=== PATIENT | female | born 1990 | race Caucasian/White ===

== ENCOUNTER 2018-11-28 22:46 | Emergency (ER) | payer MEDICAID ==
[~2018-11-28] VITALS: Ht 160 cm; Wt 63.4 kg
[2018-11-29 03:05] VITALS: BP 140/92
== END 2018-11-29 03:05 | disposition home or self-care (01) ==
LOC: ED 22:46
DX: S00.03XA Contusion of scalp, initial encounter (principal); W18.2XXA Fall in (into) shower or empty bathtub, initial encounter; Y93.E1 Activity, personal bathing and showering; Y92.002 Bathroom of unspecified non-institutional (private) residence as the place of occurrence of the external cause

== ENCOUNTER 2018-12-20 15:56 | Emergency (ER) | payer MEDICAID ==
[~2018-12-20] VITALS: Ht 160 cm; Wt 68.0 kg
[2018-12-20 16:16] VITALS: BP 133/80
== END 2018-12-20 16:36 | disposition left against medical advice (07) ==
LOC: ED 15:56
DX: R41.3 Other amnesia (principal); F17.210 Nicotine dependence, cigarettes, uncomplicated; Z91.19 Patient's noncompliance with other medical treatment and regimen

== ENCOUNTER 2019-10-13 | Emergency (ER) | payer SELFPAY ==
--- NOTE | 2019-10-13 19:35 | NUR ---
BREATHING TREATMENT GIVEN.
[2019-10-13] MEDS ORDERED: PREDNISONE10 MG PO ×2 (20:14→20:15)
[2019-10-13] MEDS ORDERED: ZITHROMAX500 MG PO ×2 (20:14→20:15)
[2019-10-13] MEDS ORDERED: VENTOLIN HFA IN ×2 (20:14→20:15)
== END 2019-10-13 20:25 | disposition home or self-care (01) | DRG 153 ==
DX: J06.9 Acute upper respiratory infection, unspecified (principal); F17.210 Nicotine dependence, cigarettes, uncomplicated

== ENCOUNTER 2019-11-15 | Emergency (ER) | payer OTHER ==
[~2019-11-15] MED LIST: PREDNISONE10 MG PO; VENTOLIN HFA IN; ZITHROMAX500 MG PO
[2019-11-15 22:01] LABS: HEMATOCRIT 32.8 % (37.0-47.0); HEMOGLOBIN 10.8 g/dl (12.0-16.0); IMMATURE GRANULOCYTES 0.3 % (0.0-5.0); MEAN CELL VOLUME 89.6 fL CALC (80.0-100.0); MEAN CORPUSCULAR HGB 29.5 pG CALC (26.0-32.0); MEAN CORPUSCULAR HGB CONC 32.9 g/L CALC (32.0-36.0); NEUT# 8.02 thou/uL (2.00-7.15); RED BLOOD COUNT 3.66 mill/uL (4.20-5.60); RED CELL DISTRI WIDTH 13.8 % (11.5-15.5)
[2019-11-15 22:11] LABS: ALBUMIN 4.3 g/dL (3.2-5.0); ALKALINE PHOSPHATASE 117 u/l (38-126); ANION GAP 12 (6-22 (CALC)); BILIRUBIN, TOTAL 0.7 mg/dL (0.0-1.4); BUN 20 mg/dL (7-17); BUN/CREATININE RATIO 31 (12-20 (CALC)); CARBON DIOXIDE 27 mmol/l (22-30); CHLORIDE 101 mmol/l (95-108); CREATININE 0.6 mg/dL (0.5-1.0); GFR > 60 ML/MIN (>=60 (CALC)); GFR FOR AFR.AMER. > 60 ML/MIN (>=60 (CALC)); POTASSIUM 4.4 mmol/l (3.5-5.1); SGOT/AST 34 u/l (14-36); SODIUM 136 mmol/l (137-146); TOTAL PROTEIN 8.2 g/dL (6.3-8.2)
[2019-11-15 23:05] LABS: URINE BILIRUBIN - DIPSTICK NEGATIVE (NEGATIVE); URINE BLOOD DIPSTICK NEGATIVE (NEGATIVE); URINE COLOR YELLOW; URINE GLUCOSE - DIPSTICK NEGATIVE (NEGATIVE); URINE KETONE NEGATIVE (NEGATIVE); URINE LEUK ESTERASE NEGATIVE (NEGATIVE); URINE NITRITE - DIPSTICK NEGATIVE (Negative); URINE PROTEIN - DIPSTICK NEGATIVE (NEG-TRACE); URINE UROBILINOGEN - DIPSTICK 0.2 E.U./dL (0.2)
[2019-11-15 23:10] LABS: BARBITURATES NEGATIVE (NEGATIVE); COCAINE NEGATIVE (NEGATIVE); METHADONE NEGATIVE (NEGATIVE); TETRAHYDROCANNABIONOL NEGATIVE (NEGATIVE); TRICYLIC ANTIDEPRESSANTS NEGATIVE (NEGATIVE)
[2019-11-15 23:11] LABS: OXCYCODONE POSITIVE (NEGATIVE)
[2019-11-15] MEDS ORDERED: NAPROXEN500 MG PO ×2 (23:13)
== END 2019-11-15 23:30 | DRG 536 ==
PROVIDERS: Emergency Medicine
DX: S32.9XXA Fracture of unspecified parts of lumbosacral spine and pelvis, initial encounter for closed fracture (principal); S51.011A Laceration without foreign body of right elbow, initial encounter; S01.01XA Laceration without foreign body of scalp, initial encounter; F17.200 Nicotine dependence, unspecified, uncomplicated; V89.2XXA Person injured in unspecified motor-vehicle accident, traffic, initial encounter

== ENCOUNTER 2020-04-12 01:49 | Inpatient (IN) | payer SELFPAY ==
[~2020-04-12] VITALS: Ht 160 cm; Wt 66.5 kg
[2020-04-12] VITALS (15 sets, daily range): BP systolic 98–164; BP diastolic 60–100
[~2020-04-12 01:49] MED LIST changes: +NAPROXEN500 MG PO
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
[2020-04-12 02:14] LABS: IMMATURE GRANULOCYTES 0.2 % (0.0-5.0); MEAN CELL VOLUME 88.6 fL CALC (80.0-100.0); MEAN CORPUSCULAR HGB 28.6 pG CALC (26.0-32.0); MEAN CORPUSCULAR HGB CONC 32.2 g/dL CAL (32.0-36.0); NEUT# 5.32 thou/uL (2.00-7.15); RED BLOOD COUNT 4.48 mill/uL (4.20-5.60); RED CELL DISTRI WIDTH 14.1 % (11.5-15.5)
[2020-04-12 02:17] LABS: URINE BILIRUBIN - DIPSTICK NEGATIVE (NEGATIVE); URINE BLOOD DIPSTICK NEGATIVE (NEGATIVE); URINE COLOR YELLOW; URINE GLUCOSE - DIPSTICK NEGATIVE (NEGATIVE); URINE KETONE NEGATIVE (NEGATIVE); URINE LEUK ESTERASE NEGATIVE (NEGATIVE); URINE NITRITE - DIPSTICK NEGATIVE (Negative); URINE PROTEIN - DIPSTICK NEGATIVE (NEG-TRACE); URINE SPECIFIC GRAVITY 1.015; URINE UROBILINOGEN - DIPSTICK 0.2 E.U./dL (0.2)
[2020-04-12 02:17] LABS: HEMATOCRIT 39.7 % (37.0-47.0); HEMOGLOBIN 12.8 g/dl (12.0-16.0)
[2020-04-12 02:26] LABS: ALBUMIN 4.7 g/dL (3.2-5.0); ALKALINE PHOSPHATASE 100 u/l (38-126); ANION GAP 16 (6-22 (CALC)); BUN 12 mg/dL (7-17); BUN/CREATININE RATIO 17 (12-20 (CALC)); CARBON DIOXIDE 22 mmol/l (22-30); CHLORIDE 103 mmol/l (95-108); CREATININE 0.7 mg/dL (0.5-1.0); ETHYL ALCOHOL 0 mg/dl (0-30); GFR > 60 ML/MIN (>=60 (CALC)); GFR FOR AFR.AMER. > 60 ML/MIN (>=60 (CALC)); MAGNESIUM 2.1 mg/dL (1.6-2.3); POTASSIUM 3.7 mmol/l (3.5-5.1); SODIUM 137 mmol/l (137-146)
[2020-04-12 02:31] LABS: HCG SERUM/URINE (NEG/POS) NEGATIVE (NEGATIVE)
[2020-04-12 02:32] LABS: BILIRUBIN, TOTAL 1.2 mg/dL (0.0-1.4); SGOT/AST 187 u/l (14-36)
--- NOTE | 2020-04-12 02:33 | NUR ---
CALLED DAVID AT POISON CONTROL. ADVISED A HEP PROFILE/REPEAT LFT AND EKG IN 4 HOURS. INCREASE K+ LEVEL TO 4.0...SUGGESTS 20-40 MEQ OF KCL EITHER IV OR PO. GIVE SOME NS AND SOME ATIVAN FOR AGITATION AND TO CONTROL THE HR.
--- NOTE | 2020-04-12 03:40 | NUR ---
PT REPORT TO NURSE MAGUIRE IN ICU
--- NOTE | 2020-04-12 03:45 | NUR ---
PT TRANSPORTED TO ICU VIA STRETCHER HEART MONITOR O2 IN STABLE CONDITION
--- NOTE | 2020-04-12 04:00 | NUR ---
PT ARRIVES VIA ER STRETCHER ON TELEPHONE MAINTAINER AND SOFT WRIST RESTRAINT WHICH WAS DISCONTINUED BY ER NURSE. PT WAS TRANSFERRED TO BED X4. PT UNABLE TO FOLLOW COMMANDS, OR ANSWER QUESTIONS, IS GUARDED, UNCOOPERATIVE AT TIMES. NEEDS CONSTANT VERBAL CUEING. ON 2 L/MIN NC. NO SOB NOTED, SATS 100%. BP 140'S SYSTOLIC, SR/ST ON TELEMETRY. [facility] SITE INTACT AND FLUSHES PROPERLY. SITTER AT BEDSIDE.
--- NOTE | 2020-04-12 05:26 | NUR ---
PT RESTLESS IN BED, ASKED IF SHE HAD TO VOID, SHE RESPONDS YES, PLACED ON BEDPAN, WAS INCONTINENT WELL. WASHED RICHARD AREA, NEW GOWN, AND BEDPAD. SITTER AT BEDSIDE.
--- NOTE | 2020-04-12 06:45 | NUR ---
REPORT RECEIVED FROM MYLES. CARE ASSUMED.
--- NOTE | 2020-04-12 07:00 | NUR ---
PT RESTING IN BED AWAKE. PT IS ALERT AND OREINTED TO SELF ONLY. REORIENTATION UNSUCCESSFUL. SHIFT ASSESSMENT COMPLETED AT THIS TIME. IV PATENT X1. SITTER AT BEDSIDE. WILL CONTINUE TO MONITOR.
--- NOTE | 2020-04-12 07:51 | NUR ---
RT AT BEDSIDE FOR EKG
--- NOTE | 2020-04-12 08:03 | NUR ---
LAB AT BEDSIDE.
--- NOTE | 2020-04-12 08:13 | NUR ---
DR MOORE AT BEDSIDE AT THIS TIME
--- NOTE | 2020-04-12 08:20 | NUR ---
MARISOL WITH POISON CONTROL CALLED FOR UPDATES. UPDATES PROVIDED.
[2020-04-12 08:37] LABS: ALBUMIN 4.6 g/dL (3.2-5.0); ALKALINE PHOSPHATASE 111 u/l (38-126); ANION GAP 12 (6-22 (CALC)); BILIRUBIN, TOTAL 1.5 mg/dL (0.0-1.4); BUN 9 mg/dL (7-17); BUN/CREATININE RATIO 15 (12-20 (CALC)); CARBON DIOXIDE 25 mmol/l (22-30); CHLORIDE 105 mmol/l (95-108); CREATININE 0.6 mg/dL (0.5-1.0); GFR > 60 ML/MIN (>=60 (CALC)); GFR FOR AFR.AMER. > 60 ML/MIN (>=60 (CALC)); POTASSIUM 4.2 mmol/l (3.5-5.1); SGOT/AST 209 u/l (14-36); SODIUM 137 mmol/l (137-146); TOTAL PROTEIN 7.8 g/dL (6.3-8.2)
--- NOTE | 2020-04-12 09:49 | NUR ---
PT RESTING IN BED. RT AT BEDSIDE TO COMPLETED EKG. EKG STILL NOT SHOWING QT/QTC MEASUREMENTS. WILL REPEAT EKG WITH EKG MACHINE FROM ER. AND CALL POISON CONTROL WITH RESULTS. PENDING ACETYLCYSTINE TO START ONCE POISON CONTROL IS NOTIFIED OF ALL FINDINGS.
--- NOTE | 2020-04-12 10:08 | NUR ---
SPOKE WITH KEVIN FROM POISON CONTROL UPDATED ON LAB VALUES AND QT/QTC. ACETADOTE STARTED PER RECOMMENDATION AND [facility] PROTOCOL WELL.
--- NOTE | 2020-04-12 11:30 | NUR ---
PT AWAKE AND REQUESTING A NICOTINE PATCH. NICOTINE PATCH ORDERED PER PROTOCOL.
--- NOTE | 2020-04-12 12:30 | NUR ---
PT AWAKE RESP ARE EVEN AND UNLABORED. PT REQUESTIGN SOMEHTING FOR ANXIETY. PT REMAINS GUARDED. SITTER AT BEDSIDE. DR MOORE NOTIFIED. NEW ORDERS RECIEVED.
--- NOTE | 2020-04-12 14:00 | NUR ---
PT AWAKE IN BED. RESP ARE EVEN AND UNLABORED. PT REMAINS GUARDED. SITTER AT BEDISDE. WILL CONTINUE TO MONITOR.
--- NOTE | 2020-04-12 16:00 | NUR ---
PT RESTING IN BED WATCHING TV. RESP ARE EVEN AND UNLABORED. VSS ON MONITOR. PT REMAINS GUARDED. CALL LIGHT IN REACH. WILL CONTINUE TO MONITOR.
--- NOTE | 2020-04-12 17:26 | NUR ---
IV site discontinued, cath intact. No edema , no redness, voices no discomfort. Peripheral IV started. IV access obtained with #20 [employer] at [facility] with 1 IV stick attempts. Flushes easily with good blood return.
--- NOTE | 2020-04-12 17:38 | NUR ---
PHONED FATHER TO BRING CLOTHES FOR PATIENT TO TAKE TO FACILITY UPON DISCHARGE.
--- NOTE | 2020-04-12 18:00 | NUR ---
PT BECOMING VERBALLY LOUD AND AGRESSIVE. PT TAKING OFF EMPLOYEE COMMUNICATIONS INTERN. PT PULLING AT ALL MONITOR. PT CURSING STAFF. DEESCALATION TECHNIQUES STARTED.
--- NOTE | 2020-04-12 18:15 | NUR ---
PT CONTINUE TO CURSE AND SHOUT AT STAFF.
--- NOTE | 2020-04-12 18:25 | NUR ---
ORDERS RECEIVED FOR RESTRAINT APPLICATION
--- NOTE | 2020-04-12 18:30 | NUR ---
DR MOOER NOTIFIED THAT PT CONTINUES TO BE AGGRESSIVE. AND MAKE THREATS TO STAFF.
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
--- NOTE | 2020-04-12 18:50 | NUR ---
RESTRAINTS APPLIED AT THIS TIME
--- NOTE | 2020-04-12 19:30 | NUR ---
PHONED PT FMAILY TO TRY TO DEESCALATE PATIENT. UNSUCCESSFUL
--- NOTE | 2020-04-12 20:37 | NUR ---
PATIENT RESTS WITH HOB [address] ON TELE 112 BPM. SATS 98%. BP 160'S SYSTOLIC. BILATERAL SOFT WRIST RESTRAINTS AND BILATERAL SOFT ANKLE RESTRAINTS INTACT. SITTER AT BEDSIDE.
--- NOTE | 2020-04-12 20:39 | NUR ---
1856: ATIVAN PRN GIVEN, PT IS RESTLESS, HAS BEEN PLACED IN SOFT RESTRAINTS. PT YELLING, CURSING, ATTEMPTING TO PULL AT EQUIPMENT. SITTER AT BEDSIDE. 1904: PT MANAGED TO GET OUT OF HER RESTRAINTS, ATTEMPTING TO CALM PATIENT DOWN REASSURING, REORIENTING. PT YELLS SHE WANTS TO GO SMOKE AND GET OUT OF HERE. RESTRAINTS SAFELY APPLIED BACK. 1925: CALLED AND SPOKE TO DR MOORE TO UPDATE ON PATIENT. NEW ORDERS RECEIVED. ALSO ORDERED TO INTUBATE IF MEDIACTIONS DID NOT HELP PATIENT. 1933: ENGLISH AND READING INSTRUCTOR AND HUMAN RESOURCE INTERN, SITTER AT BEDSIDE. PT YELLS, CURSES, ATTEMPTS TO GET OUT OF RESTRAINTS, KICKS. 1940: FATHER AND MOTHER CALLED, PLACED ON SPEAKER PHONE ON PT PHONE, PT ABLE TO TALK TO PARENTS. PT YELLING AT PARENTS. 1955: PATIENT SPITS AT STAFF, KICKS, YELLS, CURSES, BITES AT SOFT RESTRAINTS, HR ELEVATED. CALLED AND SPOKE TO DR HOLMAN (ER DOCTOR) TO NOTIFY OF PATIENT AND INTUBATION, NEW ORDERS RECEIVED, HALDOL 5 MG IM X1 NOW. 2005: HALDOL 5 MG IM PROVIDED, PATIENT CALM AND STOPS RESTLESSNESS. PT HOB PLACED AT 30 DEGREES, ST, LOW 100'S ON TELEMETRY, HR BETTER THAN BEFORE. SITTER AT BEDSIDE. RESTRAINTS INTACT.
--- NOTE | 2020-04-12 22:14 | NUR ---
PATIENT RESTS WITH HOB 30 DEGREES, SLEEPING, SNORES. NURSING ASSESSMENT PERFORMED. SOFT RESTRAINTS INTACT, ON PROPERLY. SITTER AT BEDSIDE. ST 100 BPM ON TELEMETRY, BP WNL. SATS 97% ON RA.
[2020-04-13] VITALS (21 sets, daily range): BP systolic 90–124; BP diastolic 61–82
--- NOTE | 2020-04-13 00:45 | NUR ---
PATIENT RESTS WITH HOB 30 DEGREES. NO ACUTE DISTRESS SHOWN. SOFT RESTRAINTS IN PLACE. SR ON TELE, HR 80'S, SATS 99% ON RA. BP 90'S SYSTOLIC. WILL CONTINUE TO MONITOR. SITTER AT BEDSIDE.
--- NOTE | 2020-04-13 02:59 | NUR ---
PSYCHOLOGY ASSISTANT IN ROOM FOR 0300 BLOOD DRAW DUE. PT MOVES WITH PAINFUL STIMULI. RESTS WITH EYES CLOSED. NO ACUTE DISTRESS SHOWN. SITTER AT BEDSIDE.
[2020-04-13 03:03] LABS: HEMATOCRIT 36.6 % (37.0-47.0); HEMOGLOBIN 11.3 g/dl (12.0-16.0); IMMATURE GRANULOCYTES 0.4 % (0.0-5.0); MEAN CELL VOLUME 93.1 fL CALC (80.0-100.0); MEAN CORPUSCULAR HGB 28.8 pG CALC (26.0-32.0); MEAN CORPUSCULAR HGB CONC 30.9 g/dL CAL (32.0-36.0); NEUT# 3.49 thou/uL (2.00-7.15); RED BLOOD COUNT 3.93 mill/uL (4.20-5.60); RED CELL DISTRI WIDTH 14.3 % (11.5-15.5)
[2020-04-13 03:15] LABS: ALKALINE PHOSPHATASE 92 u/l (38-126); BUN 11 mg/dL (7-17); BUN/CREATININE RATIO 20 (12-20 (CALC)); CHLORIDE 111 mmol/l (95-108); CREATININE 0.6 mg/dL (0.5-1.0); GFR > 60 ML/MIN (>=60 (CALC)); GFR FOR AFR.AMER. > 60 ML/MIN (>=60 (CALC)); POTASSIUM 4.2 mmol/l (3.5-5.1); SGOT/AST 183 u/l (14-36); SODIUM 136 mmol/l (137-146)
[2020-04-13 03:16] LABS: ALBUMIN 3.5 g/dL (3.2-5.0); ANION GAP 10 (6-22 (CALC)); BILIRUBIN, TOTAL 0.7 mg/dL (0.0-1.4); CARBON DIOXIDE 19 mmol/l (22-30); TOTAL PROTEIN 6.2 g/dL (6.3-8.2)
--- NOTE | 2020-04-13 05:57 | NUR ---
PATIENT RESTS WITH EYES CLOSED. NO ACUTE DISTRESS SHOWN. VS WNL. RESTRAINTS INTACT. SITTER AT BEDSIDE.
--- NOTE | 2020-04-13 06:40 | NUR ---
SPOKE TO DAVID LOYOLA FROM [facility], UPDATES WERE GIVEN, VS GIVEN, AST, ALT GIVEN, DAVID RECOMMENDED A HEPATITIS PANEL NOW AND NO MORE ACETYLCEISTENE. DAYSHIFT NURSE NOTIFIED
--- NOTE | 2020-04-13 07:00 | NUR ---
REPORT RECEIVED FROM SUJIT BUENO. PT RESTING IN BED IN 4 POINT SOFT WRIST AND ANKLE RESTRAINTS AND SITTER AT BEDSIDE. ASLEEP WITH NO SIGNS OF DISTRESS; SKIN WARM AND MOIST. AROUSABLE WITH FIRM TACTILE STIMULI. VSS. ANKLE RESTRAINTS REMOVED AT THIS TIME. SAFETY MEASURES IN PLACE. CALL LIGHT WITHIN REACH.
--- NOTE | 2020-04-13 08:00 | NUR ---
DR. MOORE AT BEDSIDE FOR EVAL.
--- NOTE | 2020-04-13 08:10 | NUR ---
BILATERAL SOFT WRIST RESTRAINTS REMOVED; PT VERY LETHARGIC. ASSISTED TO BSC FOR VOID; VOIDED 500ML SHY CLOUDY URINE; INCONTINENET EPISODE WELL. ASSISTED BATH PROVIDED AND LINENS CHANGED. NOW RESTING HIGH FOWLERS IN BED ENCOURAGED TO EAT BREAKFAST. FREQUENT ENCOURAGEMENT TO REMAIN AWAKE; HOLDING AND EATING BANANA WITH EYES CLOSED. SITTER WITHIN ARMS REACH TO ASSIST.
--- NOTE | 2020-04-13 09:18 | NUR ---
POISON CONTROL UPDATED ON RECOMMENDED LABS, VS, AND MENTATION OF PATIENT. CASE CLOSED BY POISON CONTROL. DR. MOORE NOTIFIED.
--- NOTE | 2020-04-13 11:45 | NUR ---
PT SITTING UP FOR LUNCH MORE ALERT; REMAINS AWAKE THROUGH MEAL WITHOUT ENCOURAGEMENT AND TALKING. REQUESTS ICE CREAM. PLASANT AND COOPERATIVE.
--- NOTE | 2020-04-13 14:26 | NUR ---
SITTER REMAINS AT BEDSIDE. PT ASLEEP WITH EYES CLOSED AND NO SIGNS OF DISTRESS. RESPIRATIONS EVEN AND UNLABORED; SPO2 100% ON ROOM AIR. IV FLUIDS CONTINUE. SAFETY MEASURES IN PLACE.
[2020-04-13] MEDS ORDERED: TRAZODONE50 MG PO (15:59)
[2020-04-13] MEDS ORDERED: VISTARIL25 MG PO (16:01)
[2020-04-13] MEDS ORDERED: TRILEPTAL300 M1 PO (16:02)
--- NOTE | 2020-04-13 17:27 | NUR ---
PT SITTING UP EATING DINNER; ALERT AND ORIENTED. DENIES PAIN, NAUSEA, AND SOB. SR HEART RATE IN THE 90'S ON FIRE FIGHTER AIRPORT. VSS.
--- NOTE | 2020-04-13 19:15 | NUR ---
sitting in bed. nad. site monitor shows sinus rhythm hr 92. #20 rac ns infusing @ [id number]. po fluids taken well. voids per bsc. fall precautions cont. sitter @ bedside. requested food. ice cream, pudding & soda given.
--- NOTE | 2020-04-13 22:00 | NUR ---
watching tv. nad. sitter remains @ bedside.
--- NOTE | 2020-04-13 23:00 | NUR ---
requested snack-given.
[2020-04-14] VITALS (8 sets, daily range): BP systolic 85–125; BP diastolic 45–74
--- NOTE | 2020-04-14 02:00 | NUR ---
resting quietly. resps even & unlabored. no apparent distress. sitter @ bedside.
--- NOTE | 2020-04-14 04:00 | NUR ---
eyes closed. no distress. machine silk screen printer shows sinus rhythm hr 78.
--- NOTE | 2020-04-14 06:06 | NUR ---
eyes closed. nad. registered nurse cardiac telemetry shows sinus rhythm. sitter @ bedside.
--- NOTE | 2020-04-14 06:45 | NUR ---
REPORT RECEIVED FROM YAW QUINN. CARE ASSUMED.
--- NOTE | 2020-04-14 07:40 | NUR ---
PT RESTING IN BED AWAKE. PT IS ALERT AND ORIENTED X3. SHIFT ASSESSMENT COMPLETED AT THIS TIME. IV PATENT X1. CALL LIGHT IN REACH. WILL CONTINUET O MONITOR.
--- NOTE | 2020-04-14 08:11 | NUR ---
DR MOORE AT BEDSIDE AT THIS TIME
--- NOTE | 2020-04-14 09:00 | NUR ---
PT REMOVED ALL CARDIAC MONITORING AND BP CUFF AT THIS TIME
--- NOTE | 2020-04-14 10:00 | NUR ---
PHONED CASE MANAGEMENT TO SEE STATUS OF BED AT [facility]. NO BED OF YET. STATED THEY MAY NEED A COVID SWAB TEST. WILL GET APPROVAL FROM ADMIN FOR [employer] IN CASE COVID SWAB IS NEEDED.
--- NOTE | 2020-04-14 10:00 | NUR ---
PT RESTING IN BED. RESP ARE EVEN AND UNLABORED. NO DISTRESS NOTED. CALL LIGHT IN REACH. WILL CONTINUE TO MONITOR.
--- NOTE | 2020-04-14 10:30 | NUR ---
APPROVAL RECEIVED FOR [employer] IF NEEDED. NOTIFIED CASE MANAGEMENT
--- NOTE | 2020-04-14 11:48 | NUR ---
PHONED CASE MANAGEMENT TO SEE STATUS OF BED AT [facility]. NO BED OF THIS TIME
--- NOTE | 2020-04-14 11:52 | NUR ---
PT RESTING IN BED WITH EYES CLOSED. RESP ARE EVEN AND UNLABORED. NO DISTRESS NOTED. SITTER AT BEDSIDE. PT REFUSES TO HAVE POWER LINE LINEMAN AND BP CHECKS. WILL CONTINUE TO MONITOR.
--- NOTE | 2020-04-14 13:01 | NUR ---
lab at bedside
[2020-04-14 13:24] LABS: ALBUMIN 3.7 g/dL (3.2-5.0); ALKALINE PHOSPHATASE 120 u/l (38-126); ANION GAP 10 (6-22 (CALC)); BILIRUBIN, TOTAL 0.5 mg/dL (0.0-1.4); BUN 10 mg/dL (7-17); BUN/CREATININE RATIO 12 (12-20 (CALC)); CARBON DIOXIDE 26 mmol/l (22-30); CHLORIDE 104 mmol/l (95-108); CREATININE 0.8 mg/dL (0.5-1.0); GFR > 60 ML/MIN (>=60 (CALC)); GFR FOR AFR.AMER. > 60 ML/MIN (>=60 (CALC)); POTASSIUM 4.1 mmol/l (3.5-5.1); SGOT/AST 141 u/l (14-36); SODIUM 136 mmol/l (137-146); TOTAL PROTEIN 6.4 g/dL (6.3-8.2)
--- NOTE | 2020-04-14 14:18 | NUR ---
PT RESTING IN BED RESP ARE EVEN AND UNLABORED. PT CONTINUES TO REFUSE PHARMACEUTICAL PLANT OPERATOR AND BP MONITORING. AND IV. CALL LIGHT IN REACH. WILL CONTINUE TO MONITOR.
--- NOTE | 2020-04-14 14:35 | NUR ---
SPOKE WITH CSU AND IT IS OK TO SEND PT. NOTIFIED [facility].
--- NOTE | 2020-04-14 14:55 | NUR ---
[facility] ARRIVED. REPORT PROVIDED.
--- NOTE | 2020-04-14 15:00 | NUR ---
PT LEFT AMBULATORY WITH [facility] TO [facility] IN STABLE CONDITION.
== END 2020-04-14 15:00 | DRG 917 ==
LOC: ED 01:49 → ED-I 02:34 → ED 02:48 → ED-I 02:49 → ICU 03:46
PROVIDERS: ADMIT Internal Medicine; ATTEND Internal Medicine
DX: T45.0X2A Poisoning by antiallergic and antiemetic drugs, intentional self-harm, initial encounter (principal); G92 Toxic encephalopathy; R09.02 Hypoxemia; F17.200 Nicotine dependence, unspecified, uncomplicated; K75.89 Other specified inflammatory liver diseases; B19.20 Unspecified viral hepatitis C without hepatic coma; R74.0 Nonspecific elevation of levels of transaminase and lactic acid dehydrogenase [LDH]; F15.10 Other stimulant abuse, uncomplicated; F19.10 Other psychoactive substance abuse, uncomplicated; Y92.009 Unspecified place in unspecified non-institutional (private) residence as the place of occurrence of the external cause; Z91.5 Personal history of self-harm; Z11.59 Encounter for screening for other viral diseases
CPT/HCPCS: J2060

== ENCOUNTER 2020-05-29 14:11 | Emergency (ER) | payer SELFPAY ==
[~2020-05-29] VITALS: Ht 160 cm; Wt 68.2 kg
[~2020-05-29 14:11] MED LIST changes: +TRAZODONE50 MG PO; +TRILEPTAL300 M1 PO; +VISTARIL25 MG PO
[2020-05-29] MEDS ORDERED: BACTRIM DS1 TAB PO (14:39)
[2020-05-29 15:02] VITALS: BP 132/88
== END 2020-05-29 15:07 | disposition home or self-care (01) | DRG 603 ==
LOC: ED 14:11
DX: L02.411 Cutaneous abscess of right axilla (principal); F17.200 Nicotine dependence, unspecified, uncomplicated; R22.31 Localized swelling, mass and lump, right upper limb

== ENCOUNTER 2020-05-29 15:09 | Emergency (ER) | payer SELFPAY ==
[~2020-05-29] VITALS: Ht 160 cm; Wt 68.2 kg
[~2020-05-29 15:09] MED LIST changes: +BACTRIM DS1 TAB PO
[2020-05-29 16:21] VITALS: BP 146/95
== END 2020-05-29 16:24 | disposition home or self-care (01) | DRG 603 ==
LOC: ED 15:09
PROC: 0X940ZZ Drainage of Right Axilla, Open Approach (ICD-10-PCS; principal; 2020-05-29)
DX: L02.411 Cutaneous abscess of right axilla (principal); R22.31 Localized swelling, mass and lump, right upper limb; F17.200 Nicotine dependence, unspecified, uncomplicated

== ENCOUNTER 2021-03-15 11:32 | Emergency (ER) | payer SELFPAY ==
[~2021-03-15] VITALS: Ht 160 cm; Wt 70.5 kg
[2021-03-15 12:42] LABS: HEMATOCRIT 41.8 % (37.0-47.0); IMMATURE GRANULOCYTES 0.1 % (0.0-5.0); MEAN CELL VOLUME 91.1 fL CALC (80.0-100.0); MEAN CORPUSCULAR HGB 30.1 pG CALC (26.0-32.0); NEUT# 8.57 thou/uL (2.00-7.15); RED BLOOD COUNT 4.59 mill/uL (4.20-5.60); RED CELL DISTRI WIDTH 12.6 % (11.5-15.5)
[2021-03-15 12:43] LABS: HEMOGLOBIN 13.8 g/dl (12.0-16.0)
[2021-03-15 12:55] LABS: ALBUMIN 4.2 g/dL (3.2-5.0); ALKALINE PHOSPHATASE 80 u/l (38-126); ANION GAP 12 (6-22 (CALC)); BILIRUBIN, TOTAL 0.6 mg/dL (0.0-1.4); BUN 7 mg/dL (7-17); BUN/CREATININE RATIO 16 (12-20 (CALC)); CARBON DIOXIDE 25 mmol/l (22-30); CHLORIDE 103 mmol/l (95-108); CREATININE 0.4 mg/dL (0.5-1.0); GFR > 60 ML/MIN (>=60 (CALC)); GFR FOR AFR.AMER. > 60 ML/MIN (>=60 (CALC)); LIPASE 28 u/l (23-300); POTASSIUM 3.7 mmol/l (3.5-5.1); SGOT/AST 65 u/l (14-36); SODIUM 136 mmol/l (137-146)
[2021-03-15 12:56] LABS: TOTAL PROTEIN 8.2 g/dL (6.3-8.2)
[2021-03-15 14:53] LABS: URINE BILIRUBIN - DIPSTICK NEGATIVE (NEGATIVE); URINE BLOOD DIPSTICK NEGATIVE (NEGATIVE); URINE COLOR YELLOW; URINE GLUCOSE - DIPSTICK NEGATIVE (NEGATIVE); URINE KETONE TRACE mg/dL (NEGATIVE); URINE LEUK ESTERASE NEGATIVE (NEGATIVE); URINE PROTEIN - DIPSTICK NEGATIVE (NEG-TRACE); URINE SPECIFIC GRAVITY 1.015; URINE UROBILINOGEN - DIPSTICK 0.2 E.U./dL (0.2)
[2021-03-15 14:58] LABS: URINE NITRITE - DIPSTICK NEGATIVE (Negative)
[2021-03-15 16:06] VITALS: BP 134/70
== END 2021-03-15 16:19 | disposition home or self-care (01) | DRG 392 ==
LOC: ED 11:32
PROVIDERS: Family Medicine
DX: R10.13 Epigastric pain (principal); F17.200 Nicotine dependence, unspecified, uncomplicated; Z91.5 Personal history of self-harm; Z20.822 Contact with and (suspected) exposure to COVID-19

== ENCOUNTER 2021-05-11 08:26 | Emergency (ER) | payer SELFPAY ==
[~2021-05-11] VITALS: Ht 160 cm; Wt 59.0 kg
[2021-05-11 09:48] LABS: HEMATOCRIT 37.8 % (37.0-47.0); HEMOGLOBIN 12.3 g/dl (12.0-16.0); IMMATURE GRANULOCYTES 0.3 % (0.0-5.0); MEAN CELL VOLUME 93.3 fL CALC (80.0-100.0); MEAN CORPUSCULAR HGB 30.4 pG CALC (26.0-32.0); MEAN CORPUSCULAR HGB CONC 32.5 g/dL CAL (32.0-36.0); NEUT# 7.53 thou/uL (2.00-7.15); RED BLOOD COUNT 4.05 mill/uL (4.20-5.60); RED CELL DISTRI WIDTH 13.5 % (11.5-15.5)
[2021-05-11 10:00] LABS: ALBUMIN 3.9 g/dL (3.2-5.0); ALKALINE PHOSPHATASE 99 u/l (38-126); ANION GAP 10 (6-22 (CALC)); BUN 6 mg/dL (7-17); BUN/CREATININE RATIO 11 (12-20 (CALC)); CARBON DIOXIDE 27 mmol/l (22-30); CHLORIDE 101 mmol/l (95-108); CREATININE 0.6 mg/dL (0.5-1.0); GFR > 60 ML/MIN (>=60 (CALC)); GFR FOR AFR.AMER. > 60 ML/MIN (>=60 (CALC)); LIPASE 48 u/l (23-300); POTASSIUM 3.8 mmol/l (3.5-5.1); SGOT/AST 64 u/l (14-36); SODIUM 135 mmol/l (137-146); TOTAL PROTEIN 7.4 g/dL (6.3-8.2)
[2021-05-11 10:07] LABS: BILIRUBIN, TOTAL 0.3 mg/dL (0.0-1.4)
[2021-05-11 10:18] LABS: URINE BILIRUBIN - DIPSTICK NEGATIVE (NEGATIVE); URINE BLOOD DIPSTICK NEGATIVE (NEGATIVE); URINE COLOR YELLOW; URINE GLUCOSE - DIPSTICK NEGATIVE (NEGATIVE); URINE KETONE NEGATIVE (NEGATIVE); URINE LEUK ESTERASE NEGATIVE (NEGATIVE); URINE PH 6.5 (4.5-8.0); URINE PROTEIN - DIPSTICK NEGATIVE (NEG-TRACE); URINE UROBILINOGEN - DIPSTICK 0.2 E.U./dL (0.2)
[2021-05-11 10:23] LABS: URINE NITRITE - DIPSTICK NEGATIVE (Negative)
[2021-05-11] MEDS ORDERED: DOXYCYC MONO100 M2 PO (12:17)
[2021-05-11 12:35] VITALS: BP 140/62
== END 2021-05-11 13:45 | disposition home or self-care (01) | DRG 391 ==
LOC: ED 08:26
PROVIDERS: Family Medicine
DX: K52.9 Noninfective gastroenteritis and colitis, unspecified (principal); J18.9 Pneumonia, unspecified organism; Z91.5 Personal history of self-harm; F17.200 Nicotine dependence, unspecified, uncomplicated; Z20.2 Contact with and (suspected) exposure to infections with a predominantly sexual mode of transmission; Z20.822 Contact with and (suspected) exposure to COVID-19
CPT/HCPCS: Q9967

== ENCOUNTER 2021-11-21 07:59 | Emergency (ER) | payer SELFPAY ==
[~2021-11-21] VITALS: Ht 160 cm; Wt 75.0 kg
[~2021-11-21 07:59] MED LIST changes: +DOXYCYC MONO100 M2 PO
[2021-11-21 08:30] VITALS: BP 134/90
[2021-11-21 08:46] VITALS: BP 134/75
[2021-11-21 08:50] LABS: HEMATOCRIT 39.1 % (37.0-47.0); HEMOGLOBIN 12.6 g/dl (12.0-16.0); IMMATURE GRANULOCYTES 0.2 % (0.0-5.0); MEAN CELL VOLUME 95.8 fL CALC (80.0-100.0); MEAN CORPUSCULAR HGB 30.9 pG CALC (26.0-32.0); MEAN CORPUSCULAR HGB CONC 32.2 g/dL CAL (32.0-36.0); NEUT# 10.06 thou/uL (2.00-7.15); RED BLOOD COUNT 4.08 mill/uL (4.20-5.60); RED CELL DISTRI WIDTH 13.2 % (11.5-15.5)
[2021-11-21 09:24] LABS: ALBUMIN 3.8 g/dL (3.2-5.0); ALKALINE PHOSPHATASE 76 u/l (38-126); AMYLASE 82 u/l (30-110); ANION GAP 10 (6-22 (CALC)); BILIRUBIN, TOTAL 0.5 mg/dL (0.0-1.4); BUN 15 mg/dL (7-17); BUN/CREATININE RATIO 25 (12-20 (CALC)); CARBON DIOXIDE 30 mmol/l (22-30); CHLORIDE 100 mmol/l (95-108); CREATININE 0.6 mg/dL (0.5-1.0); GFR > 60 ML/MIN (>=60 (CALC)); GFR FOR AFR.AMER. > 60 ML/MIN (>=60 (CALC)); LIPASE 33 u/l (23-300); POTASSIUM 4.3 mmol/l (3.5-5.1); SGOT/AST 63 u/l (14-36); SODIUM 136 mmol/l (137-146); TOTAL PROTEIN 7.1 g/dL (6.3-8.2)
[2021-11-21 10:10] LABS: URINE BILIRUBIN - DIPSTICK NEGATIVE (NEGATIVE); URINE BLOOD DIPSTICK NEGATIVE (NEGATIVE); URINE COLOR YELLOW; URINE GLUCOSE - DIPSTICK NEGATIVE (NEGATIVE); URINE KETONE NEGATIVE (NEGATIVE); URINE LEUK ESTERASE NEGATIVE (NEGATIVE); URINE PROTEIN - DIPSTICK NEGATIVE (NEG-TRACE); URINE UROBILINOGEN - DIPSTICK 0.2 E.U./dL (0.2)
[2021-11-21 10:20] LABS: URINE NITRITE - DIPSTICK NEGATIVE (Negative)
[2021-11-21] MEDS ORDERED: ONDANSETRON4 MG PO (10:24)
[2021-11-21] MEDS ORDERED: PREVACID30 M3 PO (10:24)
[2021-11-21 10:30] VITALS: BP 129/84
[2021-11-21 10:45] VITALS: BP 126/86
[2021-11-21 11:10] VITALS: BP 126/86
== END 2021-11-21 11:25 | disposition home or self-care (01) | DRG 392 ==
LOC: ED 07:59
PROVIDERS: Emergency Medicine
DX: K29.70 Gastritis, unspecified, without bleeding (principal); F15.10 Other stimulant abuse, uncomplicated; F17.210 Nicotine dependence, cigarettes, uncomplicated; Z91.51 Personal history of suicidal behavior
CPT/HCPCS: Q9967; S0164

== ENCOUNTER 2022-02-06 23:24 | Emergency (ER) | payer SELFPAY ==
[~2022-02-06] VITALS: Ht 160 cm; Wt 68.1 kg
[~2022-02-06 23:24] MED LIST changes: +ONDANSETRON4 MG PO; +PREVACID30 M3 PO
[2022-02-06 23:30] VITALS: BP 109/75
[2022-02-07] MEDS ORDERED: BACTRIM DS1 TAB PO (00:31)
[2022-02-07 00:42] VITALS: BP 109/75
== END 2022-02-07 06:56 | disposition home or self-care (01) | DRG 605 ==
LOC: ED 23:24
PROC: 0HCMXZZ Extirpation of Matter from Right Foot Skin, External Approach (ICD-10-PCS; principal; 2022-02-06)
DX: S91.311A Laceration without foreign body, right foot, initial encounter (principal); F17.200 Nicotine dependence, unspecified, uncomplicated; W25.XXXA Contact with sharp glass, initial encounter; Y92.89 Other specified places as the place of occurrence of the external cause; Y99.0 Civilian activity done for income or pay

== ENCOUNTER 2022-06-23 02:33 | Emergency (ER) | payer SELFPAY ==
[~2022-06-23] VITALS: Ht 160 cm; Wt 63.0 kg
[2022-06-23] VITALS (12 sets, daily range): BP systolic 28–128; BP diastolic 11–84
[2022-06-23 04:50] LABS: HEMATOCRIT 41.5 % (37.0-47.0); HEMOGLOBIN 13.8 g/dl (12.0-16.0); IMMATURE GRANULOCYTES 0.9 % (0.0-5.0); MEAN CELL VOLUME 92.8 fL CALC (80.0-100.0); MEAN CORPUSCULAR HGB 30.9 pG CALC (26.0-32.0); MEAN CORPUSCULAR HGB CONC 33.3 g/dL CAL (32.0-36.0); NEUT# 9.82 thou/uL (2.00-7.15); RED BLOOD COUNT 4.47 mill/uL (4.20-5.60); RED CELL DISTRI WIDTH 12.9 % (11.5-15.5)
[2022-06-23 04:51] LABS: URINE BILIRUBIN - DIPSTICK NEGATIVE (NEGATIVE); URINE BLOOD DIPSTICK NEGATIVE (NEGATIVE); URINE COLOR YELLOW; URINE GLUCOSE - DIPSTICK NEGATIVE (NEGATIVE); URINE KETONE 40 mg/dL (NEGATIVE); URINE LEUK ESTERASE NEGATIVE (NEGATIVE); URINE PH 6.5 (4.5-8.0); URINE PROTEIN - DIPSTICK TRACE mg/dL (NEG-TRACE); URINE SPECIFIC GRAVITY >=1.030; URINE UROBILINOGEN - DIPSTICK 0.2 E.U./dL (0.2)
[2022-06-23 04:54] LABS: URINE NITRITE - DIPSTICK NEGATIVE (Negative)
[2022-06-23 05:00] LABS: ALBUMIN 4.8 g/dL (3.2-5.0); ALKALINE PHOSPHATASE 61 u/l (38-126); AMYLASE 104 u/l (30-110); ANION GAP 15 (6-22 (CALC)); BILIRUBIN, TOTAL 0.8 mg/dL (0.0-1.4); BUN 14 mg/dL (7-17); BUN/CREATININE RATIO 27 (12-20 (CALC)); CARBON DIOXIDE 25 mmol/l (22-30); CHLORIDE 99 mmol/l (95-108); CREATININE 0.5 mg/dL (0.5-1.0); GFR FOR AFR.AMER. > 60 ML/MIN (>=60 (CALC)); GFR OTHER RACES > 60 ML/MIN (>=60 (CALC)); LIPASE 292 u/l (23-300); POTASSIUM 3.5 mmol/l (3.5-5.1); SGOT/AST 47 u/l (14-36); SODIUM 135 mmol/l (137-146); TOTAL PROTEIN 8.1 g/dL (6.3-8.2)
[2022-06-23] MEDS ORDERED: ONDANSETRON4 MG PO (06:42)
[2022-06-23] MEDS ORDERED: TAM75CAP PO (06:42)
== END 2022-06-23 07:00 | disposition home or self-care (01) | DRG 897 ==
LOC: ED 02:33
PROVIDERS: Emergency Medicine
DX: F15.10 Other stimulant abuse, uncomplicated (principal); J10.1 Influenza due to other identified influenza virus with other respiratory manifestations
CPT/HCPCS: Q9967

== ENCOUNTER 2022-06-24 10:07 | Emergency (ER) | payer SELFPAY ==
[~2022-06-24] VITALS: Ht 160 cm; Wt 59.1 kg
[~2022-06-24 10:07] MED LIST changes: +TAM75CAP PO
[2022-06-24 10:12] VITALS: BP 138/94
[2022-06-24 10:16] VITALS: BP 123/98
[2022-06-24 10:56] LABS: HEMOGLOBIN 12.9 g/dl (12.0-16.0); IMMATURE GRANULOCYTES 0.1 % (0.0-5.0); MEAN CELL VOLUME 93.8 fL CALC (80.0-100.0); MEAN CORPUSCULAR HGB CONC 33.1 g/dL CAL (32.0-36.0); NEUT# 9.09 thou/uL (2.00-7.15); RED BLOOD COUNT 4.16 mill/uL (4.20-5.60); RED CELL DISTRI WIDTH 12.8 % (11.5-15.5)
[2022-06-24 11:03] LABS: ALBUMIN 4.2 g/dL (3.2-5.0); ALKALINE PHOSPHATASE 72 u/l (38-126); ANION GAP 15 (6-22 (CALC)); BUN 10 mg/dL (7-17); BUN/CREATININE RATIO 18 (12-20 (CALC)); CARBON DIOXIDE 25 mmol/l (22-30); CHLORIDE 101 mmol/l (95-108); CREATININE 0.6 mg/dL (0.5-1.0); GFR FOR AFR.AMER. > 60 ML/MIN (>=60 (CALC)); GFR OTHER RACES > 60 ML/MIN (>=60 (CALC)); LIPASE 129 u/l (23-300); POTASSIUM 3.6 mmol/l (3.5-5.1); SGOT/AST 40 u/l (14-36); SODIUM 138 mmol/l (137-146); TOTAL PROTEIN 7.3 g/dL (6.3-8.2)
[2022-06-24 11:19] LABS: BILIRUBIN, TOTAL 0.4 mg/dL (0.0-1.4)
[2022-06-24 13:24] VITALS: BP 123/98
== END 2022-06-24 15:05 | disposition home or self-care (01) | DRG 392 ==
LOC: ED 10:07
PROVIDERS: Family Medicine
DX: R11.2 Nausea with vomiting, unspecified (principal); R10.9 Unspecified abdominal pain

== ENCOUNTER 2024-04-02 03:15 | Emergency (ER) | payer SELFPAY ==
[~2024-04-02] VITALS: Ht 160 cm; Wt 59.0 kg
[2024-04-02] VITALS (11 sets, daily range): BP systolic 114–131; BP diastolic 72–92
[~2024-04-02 03:15] MED LIST changes: +ZOFRAN4 MG/TAB PO
[2024-04-02] MEDS ORDERED: KETOROLAC TROMETHAMINE 30 MG/ML SDV IV ONE (03:35)
[2024-04-02] MEDS ORDERED: MORPHINE SULFATE 4 MG/ML VIAL IV ONE (03:35)
[2024-04-02] MEDS ORDERED: ONDANSETRON HCl 4 MG/2 ML SDV IV ONE (03:35)
[2024-04-02] MEDS ORDERED: NAPROXEN500 MG PO (06:00)
== END 2024-04-02 06:06 | disposition home or self-care (01) | DRG 556 ==
LOC: ED 03:15
DX: M25.531 Pain in right wrist (principal); F17.200 Nicotine dependence, unspecified, uncomplicated